=== PATIENT | female | born 1955 | race Two or more races ===

== ENCOUNTER → 2018-04-27 | Outpatient (CLI) | payer MEDICAID, OTHER | END | disposition home or self-care (01) | LOC: Rad HDHVI 14:15 | PROVIDERS: ATTEND Internal Medicine | DX: I10 Essential (primary) hypertension (principal); R00.2 Palpitations; R07.89 Other chest pain | CPT/HCPCS: 93306 ==

== ENCOUNTER → 2018-05-10 | Outpatient (CLI) | payer MEDICAID ==
[~2018-05-10] VITALS: Ht 160 cm; Wt 68.0 kg
== END | disposition home or self-care (01) ==
LOC: Rad HDHVI 14:43
PROVIDERS: ATTEND Internal Medicine
DX: I10 Essential (primary) hypertension (principal); E11.9 Type 2 diabetes mellitus without complications; E78.5 Hyperlipidemia, unspecified; R00.2 Palpitations
CPT/HCPCS: 78452; 93017; 96374; A9500

== ENCOUNTER 2019-11-15 22:57 | Emergency (ER) | payer MEDICAID ==
[~2019-11-15] VITALS: Ht 160 cm; Wt 72.6 kg
[2019-11-16 02:10] LABS: Basophils # (auto) 0 10 ^3/uL (0-0.2); Basophils % (auto) 0.5 % (0.0-2.0); Eosinophils # (auto) 0.1 10 ^3/uL (0-0.8); Eosinophils % (auto) 0.9 % (0.0-7.0); Hematocrit 45.3 % (36.0-46.0); Lymphocytes # (auto) 2.8 10 ^3/uL (0.4-5.4); Lymphocytes % (auto) 29.4 % (10.0-50.0); Mean Corpuscular Hemoglobin 29.3 pg (28.0-32.0); Mean Corpuscular Hgb Conc. 33.1 g/dL (32.0-36.0); Mean Corpuscular Volume 88.5 fL (80.0-100.0); Monocytes # (auto) 0.7 10 ^3/uL (0-1.3); Monocytes % (auto) 7.8 % (0.0-12.0); Neutrophils # (auto) 5.9 10 ^3/uL (1.6-8.6); Neutrophils % (auto) 61.4 % (37.0-80.0); Nucleated Red Blood Cells % 0.2 %; Platelet Count (auto) 189 10^3/uL (140-450); Red Blood Cells 5.12 10^6/uL (4.0-5.20); Red Cell Distribution Width 13.8 % (11.8-14.3); White Blood Cell 9.6 10^3/uL (4.4-10.8)
[2019-11-16 02:14] LABS: INR 1.02 (0.9-1.15); Partial Thromboplastin Time 27.3 sec (23.64-32.05)
[2019-11-16 02:24] LABS: Alanine Aminotransferase 22 U/L (13-56); Albumin 3.6 g/dL (3.4-5.0); Anion Gap 10 (5-15); Aspartate Aminotransferase 18 U/L (15-37); BUN/Creatinine Ratio 22.2; Blood Urea Nitrogen 20 mg/dL (7-18); Calcium 9.7 mg/dL (8.5-10.1); Carbon Dioxide 22 mmol/L (21-32); Chloride 106 mmol/L (98-107); GFR African American 81 mL/min; GFR Non-African American 67 mL/min; Glucose 133 mg/dL (74-106); Potassium 4.2 mmol/L (3.5-5.1); Sodium 138 mmol/L (136-145)
[2019-11-16 02:29] LABS: Alkaline Phosphatase 105 U/L (45-117); Bilirubin, Total 0.4 mg/dL (0.2-1.0); Total Protein 8.2 g/dL (6.4-8.2)
[2019-11-16 03:04] LABS: Urine Bacteria NONE SEEN /hpf (None Seen); Urine Blood Negative /uL (Negative); Urine WBC 2 /hpf (0 - 5)
[2019-11-16 04:00] VITALS: BP 129/54
== END 2019-11-16 04:17 | disposition home or self-care (01) ==
LOC: EDBD 22:57 → EDUNIT# 22:57 → ER 22:59
DX: I16.0 Hypertensive urgency (principal); E11.9 Type 2 diabetes mellitus without complications; I10 Essential (primary) hypertension
CPT/HCPCS: 36415; 70450; 71045; 80053; 81001; 83735; 83880; 84443; 84484; 85025; 85610; 85730; 93005

== ENCOUNTER 2022-06-16 17:26 | Emergency (ER) | payer MEDICAID ==
[~2022-06-16] VITALS: Ht 162.6 cm; Wt 75.0 kg
[2022-06-16] MEDS ORDERED: ONDANSETRON HCL 4 MG/2 ML VIAL IV ONE (19:30)
[2022-06-16] MEDS ORDERED: SODIUM CHLORIDE 0.9% 1,000 ML IV ONE (19:30)
[2022-06-16] MEDS ORDERED: KETOROLAC TROMETH 30 MG/ML 1ML VIAL IV ONE (19:30)
[2022-06-16 20:09] LABS: Albumin 4.3 g/dL (3.4-5.0); Calcium 9.3 mg/dL (8.5-10.1); Potassium 4.4 mmol/L (3.5-5.1)
[2022-06-16 20:12] LABS: BUN/Creatinine Ratio 18.1; Bilirubin, Total 0.7 mg/dL (0.2-1.0); Total Protein 7.9 g/dL (6.4-8.2)
[2022-06-16 20:16] LABS: Basophils # (auto) 0 10 ^3/uL (0-0.2); Basophils % (auto) 0.3 % (0.0-2.0); Eosinophils # (auto) 0 10 ^3/uL (0-0.8); Eosinophils % (auto) 0.3 % (0.0-7.0); Hematocrit 39.7 % (36.0-46.0); Hemoglobin 13.2 g/dL (12.2-16.2); Lymphocytes % (auto) 17.9 % (10.0-50.0); Mean Corpuscular Hemoglobin 29.6 pg (28.0-32.0); Mean Corpuscular Hgb Conc. 33.3 g/dL (32.0-36.0); Mean Corpuscular Volume 88.7 fL (80.0-100.0); Monocytes # (auto) 0.8 10 ^3/uL (0-1.3); Monocytes % (auto) 6.9 % (0.0-12.0); Neutrophils # (auto) 8.3 10 ^3/uL (1.6-8.6); Neutrophils % (auto) 74.6 % (37.0-80.0); Red Blood Cells 4.47 10^6/uL (4.0-5.20); Red Cell Distribution Width 14.6 % (11.8-14.3); White Blood Cell 11.2 10^3/uL (4.4-10.8)
[2022-06-16 21:34] LABS: Urine Bacteria FEW /hpf (None Seen); Urine Blood 1+ /uL (Negative); Urine Hyaline Cast FEW /lpf (0 - 2); Urine Mucus FEW (None Seen); Urine Specific Gravity 1.022 (1.001-1.035); Urine WBC 58 /hpf (0 - 5)
[2022-06-17] MEDS ORDERED: TAM04C PO (02:48)
[2022-06-17] MEDS ORDERED: PERCOT PO (02:48)
[2022-06-17] MEDS ORDERED: ONDA-144 PO (02:48)
[2022-06-17] MEDS ORDERED: CIPR-173 PO (02:48)
[2022-06-17 03:05] VITALS: BP 162/81
== END 2022-06-17 03:10 | disposition home or self-care (01) ==
LOC: ER 17:26
DX: N39.0 Urinary tract infection, site not specified (principal); R11.2 Nausea with vomiting, unspecified; I10 Essential (primary) hypertension; E11.9 Type 2 diabetes mellitus without complications; E78.5 Hyperlipidemia, unspecified
CPT/HCPCS: 36415; 74176; 80053; 81001; 85025; 93005; 96361; 96374; 96375; 99285; J1885; J2405; J7030

== ENCOUNTER 2024-12-10 09:10 | Inpatient (IN) | payer MEDICAID ==
[~2024-12-10] VITALS: Ht 170.2 cm; Wt 70.6 kg
[~2024-12-10 09:10] MED LIST: CIPR-173 PO; ONDA-144 PO; PERCOT PO; TAMS-35 PO
--- NOTE | 2024-12-10 09:23 | ED.PDOC ---
History of Present Illness HPI Comments 69 year old female presents to the ED via EMS with a chief complaint of generalized weakness onset today (12/10/24) around 07:00. Patient woke up around 07:00, began experiencing generalized weakness as well as nausea. Experienced similar symptoms in the past, blood pressure was high. Patient has a PMHx HTN, DM, HLD is not complaint with medication, has not taken medication for 2 years. Upon EMS arrival, BP was 200 systolic. Denies chest pain, palpitations, shortness of breath, dizziness, blurry vision, headache, vomiting, diarrhea, abdominal pain, fevers, chills, dysuria, hematuria. No other symptoms or modifying factors present at this time. Chief Complaint: General Weakness Time Seen by MD: 09:12 Primary Care Provider: GUNJAN Saenz Notes: Nurses Notes, Medications, Allergies Allergies: Coded Allergies: NO KNOWN ALLERGIES (Unverified , 11/15/19) Home Meds Active Scripts Tamsulosin Hcl (Flomax) 0.4 Mg Cap, 1 CAP PO DAILY for 14 Days, #14 CAP 0 Refills Prov:DIANA ADEN MD 06/17/22 Oxycodone W/ Acetaminophen (Percocet 5/325MG) 1 Tab Tb, 1 TAB PO BID for 7 Days, #14 TAB Prov:DIANA ADEN MD 06/17/22 Ondansetron (Zofran) 4 Mg Tab, 4 MG PO BID for 7 Days, #14 MG Prov:DIANA ADEN MD 06/17/22 Ciprofloxacin Hcl (Cipro) 500 Mg Tab, 500 MG PO BID for 7 Days, #14 CAP Prov:DIANA ADEN MD 06/17/22 Information Source: Patient, Emergency Med Personnel Mode of Arrival: EMS Severity: Moderate Timing: Hours Duration: Since onset Prehospital treatment: None Past Medical History PAST MEDICAL HISTORY: DM, High Lipids, HTN Surgical History: Denies all surgeries 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 Family History Family History: Reviewed,noncontributory to illness Social History Smoker: Non-Smoker Alcohol: Denies ETOH Use Drugs: Denies Drug Use Lives In: Home Constitutional: reports: weakness; denies: chills, diaphoresis, fatigue, fever, malaise, sweats, others EENTM: denies: blurred vision, double vision, ear bleeding, ear discharge, ear drainage, ear pain, ear ringing, eye pain, eye redness, hearing loss, mouth pain, mouth swelling, nasal discharge, nose bleeding, nose congestion, nose pain, photophobia, tearing, throat pain, throat swelling, voice changes, others Respiratory: denies: cough, hemoptysis, orthopnea, SOB at rest, shortness of breath, SOB with excertion, stridor, wheezing, others Cardiovascular: denies: chest pain, dizzy spells, diaphoresis, Dyspnea on exertion, edema, irregular heart beat, left arm pain, lightheadedness, palpitations, PND, syncope, others Gastrointestinal: reports: nausea; denies: abdomen distended, abdominal pain, blood streaked bowels, constipated, diarrhea, dysphagia, difficulty swallowing, hematemesis, melena, poor appetite, poor fluid intake, rectal bleeding, rectal pain, vomiting, others Genitourinary: denies: abnormal vagina bleeding, burning, dyspareunia, dysuria, flank pain, frequency, hematuria, incontinence, pain, , vagina d ischarge, urgency, others Neurological: reports: weakness; denies: dizziness, fainting, headache, left sided numbness, left sided weakness, numbness, paresthesia, pre-existing deficit, right sided numbness, right sided weakness, seizure, speech problems, tingling, tremors, others Musculoskeletal: denies: back pain, gout, joint pain, joint swelling, muscle pain, muscle stiffness, neck pain, others Integumetry: denies: bruises, change in color, change in hair/nails, dryness, laceration, lesions, lumps, rash, wounds, others Allergic/Immunocompromised: denies: Difficulty Healing, Frequent Infections, Hives, Itching, others Hematologic/Lymphatic: denies: anemia, blood clots, easy bleeding, easy bruising, swollen glands, others Endocrine: denies: excessive hunger, excessive sweating, excessive thirst, excessive urination, flushing, intolerance to cold, intolerance to heat, unexplained weight gain, unexplained weight loss, others Psychiatric: denies: anxiety, bipolar disorder, depression, hopeless, panic disorder, schizophrenia, sleepless, suicidal, others All Other Systems: Reviewed and Negative Physical Exam General Appearance: Moderate Distress HEENT: Pale Conjuntivae (L), Pale Conjuntivae (R), Pharynx Normal, TMs Normal Neck: Full Range of Motion, Non-Tender, Normal, Normal Inspection Respiratory: Chest Non-Tender, Lungs Clear, No Accessory Muscle Use, No Respiratory Distress, Normal Breath Sounds Cardiovascular: No Edema, No JVD, No Murmur, No Gallop, Normal Peripheral Pulses, Regular Rate/Rhythm Breast Exam: Deferred Gastrointestinal: No Organomegaly, Non Tender, No Pulsatile Mass, Normal Bowel Sounds, Soft Genitalia: Deferred Pelvic: Deferred Rectal: Deferred Extremities: No calf tenderness, Normal capillary refill, Normal inspection, Normal range of motion, Non-tender, No pedal edema Musculoskeletal : Apperance: Normal Neurologic: Alert, family assistant II-XII nml as Tested, Motor Weakness, Normal Affect, Normal Mood, No Sensory Deficits Cerebellar Function: Normal Reflexes: Normal Skin: Dry, Normal Color, Warm Lymphatic: No Adenopathy Was a procedure done? Was a procedure done?: No EKG EKG : Pulse Rate (adult): 78 Cardiac Rhythm: NSR Hypertrophy: LAE, RVH Differential Dx Considerations may include: Accelerated hypertension, generalized weakness, electrolyte imbalance, dehydration X-Ray, Labs, Meds, VS Vital Signs Date Time Temp Pulse Resp B/P (MAP) Pulse Ox O2 Delivery O2 Flow Rate FiO2 12/10/24 10:24 88 16 96 Room Air* 0 21 12/10/24 10:22 88 16 186/112 (136) 96 12/10/24 09:23 78 12/10/24 09:21 98.2 86 16 205/88 (127) 97 98.2 12/10/24 09:20 78 Lab Test 12/10/24 10:46 12/10/24 09:38 Range/Units Troponin I High Sensitivity 4 3 L </=34 ng/L White Blood Count 8.3 4.4-10.8 10^3/uL Red Blood Count 5.44 H 4.0-5.20 10^6/uL Hemoglobin 16.0 12.2-16.2 g/dL Hematocrit 47.3 H 36.0-46.0 % Mean Corpuscular Volume 87.0 80.0-100.0 fL Mean Corpuscular Hemoglobin 29.4 28.0-32.0 pg Mean Corpuscular Hemoglobin Concent 33.8 32.0-36.0 g/dL Red Cell Distribution Width 14.7 H 11.8-14.3 % Platelet Count 176 140-450 10^3/uL Mean Platelet Volume 9.8 6.9-10.8 fL Neutrophils (%) (Auto) 72.5 37.0-80.0 % Lymphocytes (%) (Auto) 20.9 10.0-50.0 % Monocytes (%) (Auto) 5.8 0.0-12.0 % Eosinophils (%) (Auto) 0.6 0.0-7.0 % Basophils (%) (Auto) 0.2 0.0-2.0 % Neutrophils # (Auto) 6.0 1.6-8.6 10 ^3/uL Lymphocytes # (Auto) 1.7 0.4-5.4 10 ^3/uL Monocytes # (Auto) 0.5 0-1.3 10 ^3/uL Eosinophils # (Auto) 0.1 0-0.8 10 ^3/uL Basophils # (Auto) 0 0-0.2 10 ^3/uL Nucleated Red Blood Cells 0.1 % Sodium Level 133 L 136-145 mmol/L Potassium Level 4.4 3.5-5.1 mmol/L Chloride Level 100 98-107 mmol/L Carbon Dioxide Level 22 20-31 mmol/L Anion Gap 11 5-15 Blood Urea Nitrogen 17 9-23 mg/dL Creatinine 1.20 H 0.550-1.02 mg/dL Glomerular Filtration Rate Calc 49 >90 mL/min BUN/Creatinine Ratio 14.2 10.0-20.0 Serum Glucose 294 H 74-106 mg/dL Calcium Level 10.3 8.7-10.4 mg/dL The patient's CBC is within normal limits The chemistry panel is within normal limits The troponin times shows no sign of any abnormalities The chest x-ray is negative We are going to admit the patient with a diagnosis of accelerated hypertension We will continue to manage the patient's blood pressure with clonidine and we did discuss the findings with the patient. The patient was admitted at this time Images Reviewed?: Images reviewed and evaluated by me Time of 1ST Reevaluation: 09:42 Reevaluation 1ST: Unchanged Patient Education/Counseling: Diagnosis, Treatment, Prognosis Family Education/Counseling: No Family Present Additional Information The following tests were ordered, and results were reviewed by me: TROP-x3, EKG -x3, CBC, XY CHEST, UA, BMP, Additional Information was gathered from interviewing the following independent historians: EMS I reviewed and agreed with the following test results read by other providers: XY CHEST I discussed treatment and results with medical personnel and: patient Comprehensive systems review obtained and negative except for what is stated in the HPI. Departure 1 Departure Time of Disposition: 11:25 Impression: Primary Impression: Accelerated hypertension Additional Impression: Generalized weakness Disposition: ADMITTED INPATIENT Admit to: Tele Condition: Fair Critical Care Note Critical Care Time?: Yes (45 min-critical care time only) Stability Stability form required: Yes Unstable for transfer: Telemetry monitoring (Telemetry monitoring required), ED Physician Assesment (Clinical assesment) Heart Score Heart Score: Heart Score Response (Comments) Value History Moderate Suspicious 1 EKG Normal 0 Age 45-64 1 Risk Factors 1 or 2 risk factors 1 Troponin Normal limit 0 Total 3 I personally scribed for AMAN LOPEZ MD ([email or web address]) on 12/10/24 at 09:23. Electronically submitted by Mary Jo Prado ([email or web address]). I personally scribed for AMAN LOPEZ MD ([email or web address]) on 12/10/24 at 09:23. Electronically submitted by Mary Jo Prado ([email or web address]). AMAN LOPEZ MD Dec 10, 2024 09:23
[2024-12-10 09:49] LABS: Basophils # (auto) 0 10 ^3/uL (0-0.2); Basophils % (auto) 0.2 % (0.0-2.0); Eosinophils # (auto) 0.1 10 ^3/uL (0-0.8); Eosinophils % (auto) 0.6 % (0.0-7.0); Hematocrit 47.3 % (36.0-46.0); Lymphocytes # (auto) 1.7 10 ^3/uL (0.4-5.4); Lymphocytes % (auto) 20.9 % (10.0-50.0); Mean Corpuscular Hemoglobin 29.4 pg (28.0-32.0); Mean Corpuscular Hgb Conc. 33.8 g/dL (32.0-36.0); Monocytes # (auto) 0.5 10 ^3/uL (0-1.3); Monocytes % (auto) 5.8 % (0.0-12.0); Neutrophils % (auto) 72.5 % (37.0-80.0); Nucleated Red Blood Cells % 0.1 %; Platelet Count (auto) 176 10^3/uL (140-450); Red Blood Cells 5.44 10^6/uL (4.0-5.20); Red Cell Distribution Width 14.7 % (11.8-14.3); White Blood Cell 8.3 10^3/uL (4.4-10.8)
--- NOTE | 2024-12-10 09:55 | DVH ---
CHEST RADIOGRAPH Indication: weakness Technique: Single frontal view of the chest was obtained Comparison: EKG on DOS: 06/16/22 FINDINGS: Lines and Tubes: None Lungs: No focal consolidation. Pleura: No effusion. No pneumothorax. Cardiomediastinal contours: Unremarkable Bones: No acute osseous abnormality. IMPRESSION: 1. No acute cardiopulmonary disease.
[2024-12-10 10:24] VITALS: PULSE 88; RESP 16; O2SAT 96
[2024-12-10 11:01] LABS: Chloride 100 mmol/L (98-107); Potassium 4.4 mmol/L (3.5-5.1)
[2024-12-10 11:02] LABS: Anion Gap 11 (5-15); Calcium 10.3 mg/dL (8.7-10.4); Carbon Dioxide 22 mmol/L (20-31)
[2024-12-10 11:03] LABS: Sodium 133 mmol/L (136-145)
[2024-12-10 11:07] LABS: BUN/Creatinine Ratio 14.2 (10.0-20.0); Blood Urea Nitrogen 17 mg/dL (9-23); Glucose 294 mg/dL (74-106)
[2024-12-10] MEDS ORDERED: NITROGLYCERIN 0.4 MG SL TAB SL PRN (18:45)
[2024-12-10] MEDS ORDERED: MORPHINE SULFATE INJ 2 MG/ml SYRG IV PRN (18:45)
[2024-12-10] MEDS ORDERED: ONDANSETRON HCL 4 MG/2 ML VIAL IV PRN (18:45)
[2024-12-10] MEDS ORDERED: DEXTROSE (50%) 50ML SYRG IV PRN (18:45)
[2024-12-10] MEDS: LISINOPRIL 5 MG TAB PO ONE (18:55)
[2024-12-10 19:20] LABS: HDL Cholesterol 48 mg/dL (40-59)
[2024-12-10 19:23] LABS: Cholesterol 316 mg/dL (< 200)
[2024-12-10 19:24] LABS: Triglycerides 441 mg/dL (< 150)
[2024-12-10 19:34] LABS: Chloride 104 mmol/L (98-107); Potassium 4.7 mmol/L (3.5-5.1); Sodium 137 mmol/L (136-145)
[2024-12-10 19:35] LABS: Anion Gap 14 (5-15)
[2024-12-10 19:41] LABS: Calcium 10.6 mg/dL (8.7-10.4); Carbon Dioxide 19 mmol/L (20-31); Glucose 210 mg/dL (74-106)
[2024-12-10 20:09] LABS: Blood Urea Nitrogen 20 mg/dL (9-23)
--- NOTE | 2024-12-10 22:14 | DVHHP2 ---
History of Present Illness Reason for Visit: Dizziness History of Present Illness 69-year-old female presents for evaluation of generalized weakness. The patient endorses a one day history of waking up feeling extremely dizzy. On arrival patient's blood pressure was systolic of 200s. Denies headache or blurred vision. No chest pain or palpitations. Patient reports not taking any medications for the past two years. No other acute complaints reported. Past Medical History Diabetes mellitus, dyslipidemia, hypertension Past Surgical History Denies Family History Noncontributory Smoke: No ALCOHOL: none Drugs: None Lives: with Family Review of Systems Review of Systems Review of systems are currently negative otherwise addressed in HPI. Allergies: Coded Allergies: NO KNOWN ALLERGIES (Unverified , 11/15/19) Medications Current Medications Medications Dose Ordered Sig/Cl Route Start Time Stop Time Status Last Admin Dose Admin Aspirin 81 mg DAILY PO 12/11/24 10:00 Lisinopril 10 mg DAILY PO 12/11/24 10:00 Diagnostic Test (Pha) 1 strip Q6HR 12/11/24 00:00 Insulin Human Regular Q6HR SC 12/11/24 00:00 Dextrose 50 ml UD PRN IV 12/10/24 18:45 Ondansetron HCl 4 mg Q4HP PRN IV 12/10/24 18:45 Enoxaparin Sodium 40 mg DAILY SC 12/11/24 10:00 Nitroglycerin 0.4 mg Q5MINP PRN SL 12/10/24 18:45 Morphine Sulfate 2 mg Q30M PRN IV 12/10/24 18:45 Exam Vital Signs Vital Signs Date Time Temp Pulse Resp B/P (MAP) Pulse Ox O2 Delivery O2 Flow Rate FiO2 12/10/24 22:06 96 16 161/86 (111) 97 12/10/24 10:24 Room Air* 0 21 12/10/24 09:21 98.2 98.2 Exam Gen: 69-year-old female in no apparent distress. Skin: Warm, dry, normal color and texture, no rash. HEENT: Normocephalic atraumatic, mucous membranes moist and pink. Neck: Cervical and supraclavicular nodes normal without enlargement, trachea is midline, thyroid gland is normal without masses. Pulmonary: Clear to auscultation and percussion bilaterally. Cardiac: Regular rate and rhythm. No murmur Abdomen: Soft, nontender, nondistended, bowel sounds present all 4 quadrants, no guarding, no rigidity, no organomegaly. Extremities: No cyanosis, clubbing, no edema Neuro: Cranial nerves II through XII grossly intact, normal affect and speech, no focal motor deficits. Labs/Xrays ORDERING PHYSICIAN: AMAN LOPEZ MD PROCEDURE(s): CXRP - CHEST PORTABLE REASON: weakness ORDER NUMBER(s): [id number], ACCESSION NUMBER(s): [id number] CHEST RADIOGRAPH Indication: weakness Technique: Single frontal view of the chest was obtained Comparison: EKG on DOS: 06/16/22 FINDINGS: Lines and Tubes: None Lungs: No focal consolidation. Pleura: No effusion. No pneumothorax. Cardiomediastinal contours: Unremarkable Bones: No acute osseous abnormality. IMPRESSION: 1. No acute cardiopulmonary disease. Labs Test 12/10/24 13:03 12/10/24 09:38 Range/Units Sodium Level 137 136-145 mmol/L Potassium Level 4.7 3.5-5.1 mmol/L Chloride Level 104 98-107 mmol/L Carbon Dioxide Level 19 L 20-31 mmol/L Anion Gap 14 5-15 Blood Urea Nitrogen 20 9-23 mg/dL Creatinine 1.11 H 0.550-1.02 mg/dL Glomerular Filtration Rate Calc 53 >90 mL/min BUN/Creatinine Ratio 18.0 10.0-20.0 Serum Glucose 210 H 74-106 mg/dL Calcium Level 10.6 H 8.7-10.4 mg/dL Troponin I High Sensitivity 6 </=34 ng/L White Blood Count 8.3 4.4-10.8 10^3/uL Red Blood Count 5.44 H 4.0-5.20 10^6/uL Hemoglobin 16.0 12.2-16.2 g/dL Hematocrit 47.3 H 36.0-46.0 % Mean Corpuscular Volume 87.0 80.0-100.0 fL Mean Corpuscular Hemoglobin 29.4 28.0-32.0 pg Mean Corpuscular Hemoglobin Concent 33.8 32.0-36.0 g/dL Red Cell Distribution Width 14.7 H 11.8-14.3 % Platelet Count 176 140-450 10^3/uL Mean Platelet Volume 9.8 6.9-10.8 fL Neutrophils (%) (Auto) 72.5 37.0-80.0 % Lymphocytes (%) (Auto) 20.9 10.0-50.0 % Monocytes (%) (Auto) 5.8 0.0-12.0 % Eosinophils (%) (Auto) 0.6 0.0-7.0 % Basophils (%) (Auto) 0.2 0.0-2.0 % Neutrophils # (Auto) 6.0 1.6-8.6 10 ^3/uL Lymphocytes # (Auto) 1.7 0.4-5.4 10 ^3/uL Monocytes # (Auto) 0.5 0-1.3 10 ^3/uL Eosinophils # (Auto) 0.1 0-0.8 10 ^3/uL Basophils # (Auto) 0 0-0.2 10 ^3/uL Nucleated Red Blood Cells 0.1 % Triglycerides Level 441 H < 150 mg/dL Cholesterol Level 316 H < 200 mg/dL LDL Cholesterol < 100 mg/dL HDL Cholesterol 48 40-59 mg/dL Thyroid Stimulating Hormone (TSH) 2.44 0.55-4.78 uIU/mL Assessment/Plan Assessment/Plan Assessment Hypertensive urgency Diabetes mellitus Acute kidney injury Noncompliant Plan Admit the patient to [facility] to the hospitalist Echocardiogram pending CT of the brain pending Resume home medications Continue treatment per orders. Plan discussed with: Patient My Orders Orders - DIANNE HOLCOMB AGACNP Procedure Category Date Status Time Aspirin Tablet PHA 12/11/24 In Process 10:00 Lisinopril Tablet PHA 12/11/24 In Process (Zestril Tablet) 10:00 Glucose Blood PHA 12/11/24 In Process (Accu-Chek Comfort 00:00 Insulin R (Human) PHA 12/11/24 In Process (Insulin R) 00:00 Dextrose 50% Syringe PHA 12/10/24 In Process 18:45 Admit ADMIT 12/10/24 Transmitted 18:43 Ondansetron Hcl PHA 12/10/24 In Process (Zofran) 18:45 Enoxaparin Sodium PHA 12/11/24 In Process (Lovenox) 10:00 Cardiac DIET 12/11/24 Transmitted Diet-2gna,Lofat,Lochol Breakfast Echo 2d Mode Cardiac US 12/10/24 Logged DOP 18:43 Condition: Stable [facility] 12/10/24 In Process 18:43 Bedrest With Bathroom [facility] 12/10/24 In Process Privileg 18:43 Nitroglycerin PHA 12/10/24 In Process Sublingual (Ntrostat 18:45 Morphine Sulfate PHA 12/10/24 In Process Injection 18:45 Stat Ekg For Chest [facility] 12/10/24 In Process Pain 18:43 Notify Md Of Changes [facility] 12/10/24 In Process From Base 18:43 Park Attendant For [facility] 12/10/24 In Process 24 Hours 18:43 Emergency Dysrhythmia [facility] 12/10/24 In Process Protocol 18:43 Rhythm Strips Once [facility] 12/10/24 In Process Every Shift 18:43 Oxygen By Nasal RT 12/10/24 Transmitted Cannula 18:43 Clonidine Hcl Tablet PHA 12/10/24 Verified (Catapres Tablet) 22:[address] 12/10/24 Verified 22:10 Date of Service: Dec 10, 2024 Billing Provider: DIANNE HOLCOMB Common Visit Codes: [id number] INP/OBS CARE (HIGH) DIANNE OHLCOMB Dec 10, 2024 22:14
--- NOTE | 2024-12-10 22:44 | DVH ---
EXAM: CT HEAD WITHOUT CONTRAST INDICATION: Dizziness TECHNIQUE: CT of the head without intravenous contrast. Radiation Dose Information: CT Dose: CTDI volume is 50.95 mGy. Dose-length product is 816.9 mGy*cm The dose indicators for CT are the volume Computed Tomography (CT) Dose Index (CTDIvol) and the Dose Length Product (DLP), and are measured in units of mGy and mGy-cm, respectively. These indicators are not patient dose, but values generated from the CT scanner acquisition factors. The report includes radiation exposure data for exposures received during this examination. COMPARISON: None FINDINGS: There is no evidence of acute intracranial hemorrhage, extra-axial collection, mass effect, midline s hift, herniation or hydrocephalus. The ventricles, sulci and cisterns are age appropriate. The sparks-white differentiation is intact. Patchy periventricular and subcortical white matter hypoattenuation is nonspecific but may be related to small vessel ischemic disease. The visualized paranasal sinuses and mastoid air cells are clear. The surrounding soft tissues and osseous structures are unremarkable. IMPRESSION: 1. No acute intracranial hemorrhage 2. No CT findings of territorial ischemia. 3. No paranasal sinus or mastoid disease
[2024-12-10 23:20] VITALS: BP_SYST 149; BP_SYST 161; BP_DIAS 74; BP_DIAS 76; PULSE 75; RESP 18; TEMP 97.5; O2SAT 95
[2024-12-10 23:29] VITALS: PULSE 75; RESP 18; O2SAT 95
[2024-12-11] MEDS: InsuLIN REG 1unit/0.01ml Soln (100units/ml) SC SCH (00:20)
[2024-12-11] MEDS: ACCU-CHEK COMFORT CURVE STRIP VI SCH (00:21)
[2024-12-11] MEDS: cloNIDine HCL 0.1 MG TAB PO PRN (00:35)
[2024-12-11 01:00] VITALS: BP 163/50; PULSE 73; RESP 18; O2SAT 96
[2024-12-11 05:00] VITALS: BP 98/59; PULSE 82; RESP 20; TEMP 97.9; O2SAT 96
--- NOTE | 2024-12-11 07:26 | ECG ---
[facility] Test Date: 2024-12-10 Test Time: 09:20:50 Pat Name: LIZBETH LLOYD Department: ED Room: 0251 A Gender: F Midlevel Provider: SEGUN : 1955 Requested By: AMAN LOPEZ Order Number: [id number] Reading MD: Garett Hou Measurements Intervals [place] Rate: 78 P: 65 DC: 157 QRS: 83 QRSD: 74 T: 54 QT: 357 QTc: 407 Interpretive Statements Sinus rhythm Probable left atrial enlargement Consider right ventricular hypertrophy Electronically Signed On 12-11-2024 17:09:37 PDT by Garett Hou Please click the below link to view image of tracing.
[2024-12-11 09:00] VITALS: BP 120/60; PULSE 70; RESP 18; TEMP 98.1; O2SAT 96
[2024-12-11] MEDS: LISINOPRIL 5 MG TAB PO SCH (10:00)
[2024-12-11] MEDS: ASPirin 81 mg TAB PO SCH (12:42)
[2024-12-11] MEDS: ENOXAPARIN SOD 40 MG/0.4 ML SYRINGE SC SCH (12:43)
[2024-12-11 13:00] VITALS: BP 130/58; PULSE 73; RESP 18; TEMP 97.9; O2SAT 93
--- NOTE | 2024-12-11 13:41 | DVHPN2 ---
Reviewed: Care Plan, H&P, Labs, Medications, Previous Orders, Radiology Changes from previous H/P or p: No Changes Objective Vitals Vital Signs Date Time Temp Pulse Resp B/P (MAP) Pulse Ox O2 Delivery O2 Flow Rate FiO2 12/11/24 13:00 97.9 73 18 130/58 (82) 93 97.9 12/10/24 23:29 Room Air* 0 21 Intake/Output Intake and Output 12/11/24 07:00 Intake Total 50 ml Balance 50 ml Intake Oral 50 ml Medications Current Medications Medications Dose Ordered Sig/Cl Route Start Time Stop Time Status Last Admin Dose Admin Aspirin 81 mg DAILY PO 12/11/24 10:00 12/11/24 12:42 81 MG Lisinopril 10 mg DAILY PO 12/11/24 10:00 12/11/24 10:00 10 MG Diagnostic Test (Pha) 1 strip Q6HR 12/11/24 00:00 12/11/24 12:00 1 STRIP Insulin Human Regular Q6HR SC 12/11/24 00:00 12/11/24 12:44 4 UNITS Dextrose 50 ml UD PRN IV 12/10/24 18:45 Ondansetron HCl 4 mg Q4HP PRN IV 12/10/24 18:45 Enoxaparin Sodium 40 mg DAILY SC 12/11/24 10:00 12/11/24 12:43 40 MG Nitroglycerin 0.4 mg Q5MINP PRN SL 12/10/24 18:45 Morphine Sulfate 2 mg Q30M PRN IV 12/10/24 18:45 Clonidine HCl 0.1 mg Q6HP PRN PO 12/10/24 22:15 12/11/24 00:35 0.1 MG Laboratory Results Laboratory Tests 12/10/24 09:38 12/10/24 13:03 Labs and/or images reviewed: Labs reviewed by me, Image(s) reviewed by me Assessment/Plan Assessment/Plan Acute hypertensive emergency with systolic of 200: Clonidine lisinopril metoprolol tartrate Acute hypertensive encephalopathy Uncontrolled diabetes glucose 238: Insulin sliding scale, we will check A1c Hypercholesterolemia: Lipitor Medication noncompliance BAYRON Acute dehydration Time Spent 50 minutes Plan discussed with: Patient My Orders Orders - KYRA HERNANDEZ MD Procedure Category Date Status Time Hemoglobin A1c LAB 12/11/24 Transmitted 13:38 Metoprolol Tartrate PHA 12/11/24 Transmitted Tablet (Lopressor Ta 22:00 Date of Service: Dec 11, 2024 Billing Provider: KYRA HERNANDEZ MD Common Visit Codes: [id number] INP/OBS CARE(HIGH) KYRA HERNANDEZ MD Dec 11, 2024 13:40
[2024-12-11 16:36] VITALS: BP 111/57; PULSE 68; RESP 18; TEMP 98.1; O2SAT 96
[2024-12-11 21:00] VITALS: BP 127/62; PULSE 78; RESP 19; TEMP 98.3; O2SAT 93
[2024-12-11] MEDS: METOPROLOL TARTRATE 50 MG TAB PO SCH (21:27)
[2024-12-12 00:54] VITALS: BP 101/55; PULSE 58; RESP 20; TEMP 97.6; O2SAT 96
[2024-12-12 05:00] VITALS: BP 120/64; PULSE 58; RESP 20; TEMP 98; O2SAT 97
[2024-12-12 08:00] VITALS: PULSE 76; RESP 94
[2024-12-12 08:08] VITALS: BP 153/82; PULSE 76; RESP 18; TEMP 97.5; O2SAT 94
[2024-12-12] MEDS ORDERED: METO-158 PO (09:17)
[2024-12-12] MEDS ORDERED: LISI20TA56 PO (09:17)
[2024-12-12] MEDS ORDERED: ATOR80TA PO (09:19)
--- NOTE | 2024-12-12 09:22 | DVHDS2 ---
Discharge Summary Date of Admission Dec 10, 2024 at 18:43 Date of Discharge: December 12, 2024 Admitting Diagnosis Generalized weakness Wounds: None Labs/Diagnostic Data: Laboratory Results Test 12/12/24 05:19 12/11/24 15:20 12/10/24 13:03 12/10/24 09:38 POC Glucose 158 mg/dl (70-106) Hemoglobin A1c 10.2 % A1C (<5.7) Sodium Level 137 mmol/L (136-145) Potassium Level 4.7 mmol/L (3.5-5.1) Chloride Level 104 mmol/L (98-107) Carbon Dioxide Level 19 mmol/L (20-31) Anion Gap 14 (5-15) Blood Urea Nitrogen 20 mg/dL (9-23) Creatinine 1.11 mg/dL (0.550-1.02) Glomerular Filtration Rate Calc 53 mL/min (>90) BUN/Creatinine Ratio 18.0 (10.0-20.0) Serum Glucose 210 mg/dL (74-106) Calcium Level 10.6 mg/dL (8.7-10.4) Troponin I High Sensitivity 6 ng/L (</=34) White Blood Count 8.3 10^3/uL (4.4-10.8) Red Blood Count 5.44 10^6/uL (4.0-5.20) Hemoglobin 16.0 g/dL (12.2-16.2) Hematocrit 47.3 % (36.0-46.0) Mean Corpuscular Volume 87.0 fL (80.0-100.0) Mean Corpuscular Hemoglobin 29.4 pg (28.0-32.0) Mean Corpuscular Hemoglobin Concent 33.8 g/dL (32.0-36.0) Red Cell Distribution Width 14.7 % (11.8-14.3) Platelet Count 176 10^3/uL (140-450) Mean Platelet Volume 9.8 fL (6.9-10.8) Neutrophils (%) (Auto) 72.5 % (37.0-80.0) Lymphocytes (%) (Auto) 20.9 % (10.0-50.0) Monocytes (%) (Auto) 5.8 % (0.0-12.0) Eosinophils (%) (Auto) 0.6 % (0.0-7.0) Basophils (%) (Auto) 0.2 % (0.0-2.0) Neutrophils # (Auto) 6.0 10 ^3/uL (1.6-8.6) Lymphocytes # (Auto) 1.7 10 ^3/uL (0.4-5.4) Monocytes # (Auto) 0.5 10 ^3/uL (0-1.3) Eosinophils # (Auto) 0.1 10 ^3/uL (0-0.8) Basophils # (Auto) 0 10 ^3/uL (0-0.2) Nucleated Red Blood Cells 0.1 % Triglycerides Level 441 mg/dL (< 150) Cholesterol Level 316 mg/dL (< 200) LDL Cholesterol mg/dL (< 100) HDL Cholesterol 48 mg/dL (40-59) Thyroid Stimulating Hormone (TSH) 2.44 uIU/mL (0.55-4.78) Other Laboratory Tests 12/10/24 13:03 12/10/24 09:38 Brief Hx & Hospital Course: 69-year-old female with a history of diabetes hypertension hypercholesterolemia noncompliant not taking medications came in complaining of generalized weakness systolic blood pressure was 200 treated with lisinopril metoprolol tartrate clonidine and blood pressure controlled glucose 238 placed on insulin sliding scale cholesterol very high total cholesterol 330 placed on Lipitor: Patient's blood pressure controlled and now asymptomatic with a stable vital signs being discharged home. Advised about compliance with the medications. Prescriptions transmitted to the pharmacy Consults/Reason for consult None Operations or Procedures CT head Condition at Discharge: Fair Final Diagnosis/Problems List Acute hypertensive emergency with systolic of 200: Clonidine lisinopril metoprolol tartrate Acute hypertensive encephalopathy Uncontrolled diabetes glucose 238: Insulin sliding scale, we will check A1c Hypercholesterolemia: Lipitor Medication noncompliance BAYRON Acute dehydration Discharge Disposition: Home Discharge Instruct/Medications Diet: Cardiac 2g Na,low cholest Activity: Light activity Follow Up/Referral: Use medications as prescribed Follow up with the primary Dr Medications: Metoprolol tartrate Lisinopril Transmitted to pharmacy 39 (Time Taken for discharge summary 39 minutes) Discharge Statement: "Patient was advised to return to the ER or call 911 if any headaches, dizziness, shortness of breath, chest pain, abdominal pain, bleeding, fevers, or worsening of medical condition. Patient was counseled about treatment plan, medications, possible side effects, patientverbalized understanding. All questions were answered to the best of my ability. This discharge took greater then 30 minutes in planning, reviewing documentation, counseling the patient, and discussing with other team members." ASSESSMENT ASSESSMENT Hospital Course Improved Assessment Acute hypertensive emergency with systolic of 200: Clonidine lisinopril metoprolol tartrate Acute hypertensive encephalopathy Uncontrolled diabetes glucose 238: Insulin sliding scale, we will check A1c Hypercholesterolemia: Lipitor Medication noncompliance BAYRON Acute dehydration Date of Service: December 12, 2024 Billing Provider: KYRA HERNANDEZ MD Common Visit Codes: [id number] DISCH DAY >30min KYRA HERNANDEZ MD December 12, 2024 09:22
[2024-12-12] MEDS ORDERED: METF-372 PO (09:30)
[2024-12-12 11:38] VITALS: BP 120/29; PULSE 60; RESP 20; TEMP 98.7; O2SAT 96
[2024-12-12] MEDS: ATORVASTATIN 20 MG TAB PO ONE (11:45)
--- NOTE | 2024-12-12 14:32 | DVHSR ---
APPROVED REPORT EXAM: Two-dimensional and M-mode echocardiogram with Doppler and color Doppler. Blood Pressure: 98/59 mmHg INDICATION EF RISK FACTORS Height: 5'7", Weight: 155 DIMENSIONS LVDd4.4 (3.8-5.7cm)LA (2D)3.5 (1.9-4.0cm)Aortic Root2.8 (2.0-3.7cm) LVDs2.6 (2.5-4.0cm)LA (MM) (1.9-4.0cm)Aortic Cusp Exc1.3 (1.5-2.0cm) EF (%) 73.0 (55-70%)Rt. Atrium3.0 (1.9-4.0cm)Asc. Aorta2.7 cm IVSd1.1 (0.7-1.1cm)RV (D)2.8 (1.8-2.4cm) PWd0.6 (0.7-1.1cm) Mitral Valve MitralMitral Stenosis E wave0.49m/sMV Mean GR.mmHg A wave0.84m/sMV Peak GR.mmHg E/A ratio0.62D MVAcm2 DECEL [id number] 1/2 Timems Aortic Valve Aortic ValveAortic Stenosis V11.19m/Marcia Mean GR.4mmHg V21.21m/Marcia Peak GR.5mmHg LVOT Diameter1.6 (1.8-2.4cm)Doppler AVA1.98cm2 Pulmonic Valve V21.16m/s Tricuspid Valve TR Velocity2.44m/s [id number] Conclusion Technically good study. Sinus rhythm. Mild concentric LVH with left atrial enlargement of mild degree. Mild dilation of the sinuses of Shelley leon. Valves appear to be structurally normal. EF of 60% with normal RV function. Doppler reveals mild TR. No pericardial effusion masses or vegetations.
[2024-12-12 16:04] VITALS: BP 111/52; PULSE 67; RESP 18; TEMP 98.3; O2SAT 98
== END 2024-12-12 17:05 | disposition home or self-care (01) | DRG 199 ==
LOC: EDBD 09:10 → ER 09:10 → OVERFLOW 18:43 → EAST 23:18
PROVIDERS: ADMIT Family Medicine; ATTEND Family Medicine
DX: I16.1 Hypertensive emergency (principal); I67.4 Hypertensive encephalopathy; N17.9 Acute kidney failure, unspecified; E11.9 Type 2 diabetes mellitus without complications; E86.0 Dehydration; E78.00 Pure hypercholesterolemia, unspecified; Z91.148 Patient's other noncompliance with medication regimen for other reason; Z79.899 Other long term (current) drug therapy
CPT/HCPCS: 36415; 70450; 71045; 80048; 80061; 82962; 83036; 84443; 84484; 85025; 93005; 93306; 99291; G0378; J1815

== ENCOUNTER 2025-06-13 22:26 | Inpatient (IN) | payer MEDICAID ==
[~2025-06-13] VITALS: Ht 154.9 cm; Wt 66.5 kg
[~2025-06-13 22:26] MED LIST changes: +ATOR80TA PO; +LISI20TA56 PO; +METF-372 PO; +METO-158 PO
[2025-06-13] MEDS: NITROGLYCERIN 0.4 MG SL TAB SL ONE (22:52)
[2025-06-13 23:43] LABS: Hematocrit 41.9 % (36.0-46.0); Hemoglobin 14.1 g/dL (12.2-16.2); Mean Corpuscular Hemoglobin 30.0 pg (28.0-32.0); Mean Corpuscular Volume 89.4 fL (80.0-100.0); Nucleated Red Blood Cells % 0.1 %
[2025-06-13 23:59] LABS: Alanine Aminotransferase 20 U/L (7-40); Albumin 4.6 g/dL (3.2-4.8); Alkaline Phosphatase 103 U/L (46-116); Anion Gap 11 (5-15); BUN/Creatinine Ratio 17.3 (10.0-20.0); Bilirubin, Total 0.8 mg/dL (0.2-1.0); Blood Urea Nitrogen 19 mg/dL (9-23); Calcium 10.1 mg/dL (8.7-10.4); Carbon Dioxide 23 mmol/L (20-31); Chloride 105 mmol/L (98-107); Magnesium 1.9 mg/dL (1.6-2.6); Potassium 4.3 mmol/L (3.5-5.1); Sodium 139 mmol/L (136-145); Total Protein 7.8 g/dL (5.7-8.2)
[2025-06-14] VITALS (9 sets, daily range): BP systolic 127–196; BP diastolic 71–100; PULSE 67–91; RESP 16–17; TEMP 97.3–98.1; O2SAT 96–100
[2025-06-14 00:01] LABS: Lactic Acid w/Reflex 2.2 mmol/L (0.4-2.0)
[2025-06-14 00:02] LABS: Glucose 129 mg/dL (74-106); Lipase 56 U/L (12-53)
[2025-06-14] MEDS: LIDOCAINE VISCOUS 2% 15ML UD PO ONE (00:15)
--- NOTE | 2025-06-14 00:15 | ED.PDOC ---
HPI Comments HPI: Poor Historian. 69-year-old female brought in by her daughter for evaluation of one day history of midsternal chest burning sensation with the associated nausea. No abdominal pain. Patient was found to be hypertensive in the 200s systolically. She is compliant with the medications. Denies any other active symptoms. Past Medical History: Hypertension, hyperlipidemia, diabetes Past Surgical History: Some type of neck surgery she is not sure of REVIEW OF SYSTEMS: CONSTITUTIONAL: Denies acute: fever, diaphoresis, chills, generalized weakness. HEAD: Denies acute: headache, photophobia Eyes: Denies acute: Double vision, vision loss, eye pain, eye discharge. EARS: Denies acute: tinnitus, hearing loss, ear discharge, ear pain, THROAT: Denies acute: sore throat, swelling, difficulty swallowing , pain with swallowing, change in voice. NECK: Denies acute: neck pain, neck swelling, stiff neck. HEART: Denies acute : palpitations, LUNGS: Denies acute: SOB, wheezing, cough, hemoptysis ABDOMEN: Denies acute: abdominal pain, Vomiting, diarrhea, melena , hematemesis, hematochezia SKIN: Denies acute: rash, redness, lesions, itchiness. EXTREMITIES: Denies acute: calf pain, numbness, tingling, weakness, denies pain in extremity. Denies acute: Low back pain. Neuro: Denies acute: focal neurological deficit, motor or sensory focal neurological deficit, tremors, seizure like activity, confusion, dizziness, change in mental status, loss of bowel or bladder function, cauda equina like symptoms. : Denies acute: dysuria, hematuria, flank pain, increase in urinary frequency. PSYCH: Denies acute: hallucination, suicidal ideation, homicidal ideation. FEMALE: Denies acute: abnormal vaginal bleeding, foul odor, unusual discharge. PHYSICAL EXAM: General: ----mild----acute distress, awake and alert. Head: normocephalic, atraumatic. No raccoon's eyes, no so sign. Neck: supple, trachea is midline, no swelling. Throat: Normal phonation. Eyes:, no erythema, no purulent discharge, no proptosis, no icterus. Heart: regular rate, regular rhythm, no significant murmur appreciated. Lungs: no apparent respiratory distress, Able to speak in full sentences. No wheezing, no rhonchi, no crackles. No stridors Clear to auscultation bilaterally. Abdomen: non tender to palpation, non distended, soft, no guarding, no rebound, + bowel sounds. Neuro: Awake, Alert, oriented to name, self, situation, follows commands GCS=15. Speech is normal. Skin: no petechia, no purpura, no cyanosis, non-pale, not jaundice. Lower extremities: --no - Pitting edema no deformity, no focal swelling, no calf TTP. Makes eye contact. moves all four extremities. Face: no apparent facial droop. ED COURSE: DISCLAIMER: This medical document was created using an electronic medical record system with voice recognition software and computerized dictation system. Although this document has been carefully reviewed, there might still be some phonetic and typographical errors. Occasional wrong-word or "sound-alike" substitutions may have occurred due to the inherent limitations of voice recognition software. These areas are purely typographical due to imperfections of the software programs and do not reflect any compromise in the patient's medical care. Please read the chart carefully and recognize, using context, where these substitutions have occurred. Chief Complaint: High Blood Pressure Time Seen by MD: 23:20 Primary Care Provider: GUNJAN Reviewed Notes: Nurses Notes, Medications, Allergies Allergies: Coded Allergies: NO KNOWN ALLERGIES (Unverified , 11/15/19) Home Meds Active Scripts Metformin Hydrochloride (Metformin Hcl) 1,000 Mg Tab, 1 TAB PO BID, #60 TAB 5 Refills Prov:KYRA HERNANDEZ MD 12/12/24 Atorvastatin Calcium (Lipitor) 80 Mg Tab, 1 TAB PO DAILY, #30 TAB 5 Refills Prov:KYRA HERNANDEZ MD 12/12/24 Lisinopril (Lisinopril) 20 Mg Tab, 1 TAB PO DAILY, #30 TAB 5 Refills Prov:KYRA HERNANDEZ MD 12/12/24 Metoprolol Tartrate (Metoprolol Tartrate) 50 Mg Tab, 50 MG PO BID, #60 TAB Prov:KYRA HERNANDEZ MD 12/12/24 Tamsulosin Hcl (Flomax) 0.4 Mg Cap, 1 CAP PO DAILY for 14 Days, #14 CAP 0 Refills Prov:DIANA ADEN MD 06/17/22 Oxycodone W/ Acetaminophen (Percocet 5/325MG) 1 Tab Tb, 1 TAB PO BID for 7 Days, #14 TAB Prov:DIANA ADEN MD 06/17/22 Ondansetron (Zofran) 4 Mg Tab, 4 MG PO BID for 7 Days, #14 MG Prov:DIANA ADEN MD 06/17/22 Ciprofloxacin Hcl (Cipro) 500 Mg Tab, 500 MG PO BID for 7 Days, #14 CAP Prov:DIANA ADEN MD 06/17/22 Information Source: Patient Mode of Arrival: Ambulatory Past Medical History PAST MEDICAL HISTORY: DM, High Lipids, HTN Surgical History: Denies all surgeries INFO ANALYST History: No Pertinent INFO ANALYST History Family History Family History: Reviewed,noncontributory to illness Social History Smoker: Non-Smoker Alcohol: Denies ETOH Use Drugs: Denies Drug Use Lives In: Home Was a procedure done? Was a procedure done?: No CP Differential Dx Differential Diagnosis: N/A Differential Diagnosis: Other (DDX include renal disease, thyroid disease, electrolyte abnormality, increased salt intake, medications non-compliance, undiagnosed HTN, Hypertensive crisis, hypertensive urgency., drug toxicity.) Differential Diagnosis: Other (Ddx include but not limitied to gastritis, musculoskeletal pain, radiculopathy, atypical chest pain, dissection, aneurysm, ACS, unstable angina, hiatal hernia, GERD, anxiety, costochondritis, PE, pneumothroax, neoplasm, cardiac ischemia, drug abuse, anemia.) X-Ray, Labs, Meds, VS Vital Signs Date Time Temp Pulse Resp B/P (MAP) Pulse Ox O2 Delivery O2 Flow Rate FiO2 06/13/25 22:52 212/102 06/13/25 22:42 77 06/13/25 22:33 97.1 90 20 202/107 98 97.1 Lab Test 06/14/25 00:32 06/13/25 23:59 06/13/25 23:32 Range/Units Troponin I High Sensitivity < 3 L < 3 L </=34 ng/L Urine Color Colorless Yellow Urine Clarity Clear Clear Urine pH 6.0 5.0-9.0 Urine Specific [place] 1.010 1.001-1.035 Urine Protein 1+ H Negative Urine Ketones Negative Negative Urine Blood Negative Negative /uL Urine Nitrite Negative Negative Urine Bilirubin Negative Negative Urine Urobilinogen Normal Negative mg/dL Urine Leukocyte Esterase 1+ Negative /uL Urine RBC 1 0 - 4 /hpf Urine Microscopic WBC 4 0-5 /HPF Urine Squamous Epithelial Cells Few <5 /hpf Urine Bacteria None seen None Seen /hpf Urine Glucose Normal Normal mg/dL White Blood Count 9.3 4.4-10.8 10^3/uL Red Blood Count 4.69 4.0-5.20 10^6/uL Hemoglobin 14.1 12.2-16.2 g/dL Hematocrit 41.9 36.0-46.0 % Mean Corpuscular Volume 89.4 80.0-100.0 fL Mean Corpuscular Hemoglobin 30.0 28.0-32.0 pg Mean Corpuscular Hemoglobin Concent 33.6 32.0-36.0 g/dL Red Cell Distribution Width 13.8 11.8-14.3 % Platelet Count 179 140-450 10^3/uL Mean Platelet Volume 10.0 6.9-10.8 fL Neutrophils (%) (Auto) 58.4 37.0-80.0 % Lymphocytes (%) (Auto) 33.2 10.0-50.0 % Monocytes (%) (Auto) 7.6 0.0-12.0 % Eosinophils (%) (Auto) 0.5 0.0-7.0 % Basophils (%) (Auto) 0.3 0.0-2.0 % Neutrophils # (Auto) 5.4 1.6-8.6 10 ^3/uL Lymphocytes # (Auto) 3.1 0.4-5.4 10 ^3/uL Monocytes # (Auto) 0.7 0-1.3 10 ^3/uL Eosinophils # (Auto) 0 0-0.8 10 ^3/uL Basophils # (Auto) 0 0-0.2 10 ^3/uL Nucleated Red Blood Cells 0.1 % Sodium Level 139 136-145 mmol/L Potassium Level 4.3 3.5-5.1 mmol/L Chloride Level 105 98-107 mmol/L Carbon Dioxide Level 23 20-31 mmol/L Anion Gap 11 5-15 Blood Urea Nitrogen 19 9-23 mg/dL Creatinine 1.10 H 0.550-1.02 mg/dL Glomerular Filtration Rate Calc 54 >90 mL/min BUN/Creatinine Ratio 17.3 10.0-20.0 Serum Glucose 129 H 74-106 mg/dL Lactic Acid Level 2.2 *H 0.4-2.0 mmol/L Calcium Level 10.1 8.7-10.4 mg/dL Magnesium Level 1.9 1.6-2.6 mg/dL Total Bilirubin 0.8 0.2-1.0 mg/dL Aspartate Amino Transferase (AST) 21 13-40 U/L Alanine Aminotransferase (ALT) 20 7-40 U/L Alkaline Phosphatase 103 46-116 U/L Total Protein 7.8 5.7-8.2 g/dL Albumin 4.6 3.2-4.8 g/dL Lipase 56 H 12-53 U/L Current Medications Medications (Trade) Dose Ordered Sig/Cl Route Start Time Stop Time Status Last Admin Nitroglycerin (Ntrostat Sublingual) 0.4 mg ONCE ONCE SL 06/13/25 22:45 06/13/25 22:46 DC 06/13/25 22:52 Labetalol HCl (Labetalol HCl) 5 mg ONCE ONCE IV 06/13/25 23:30 06/13/25 23:31 DC 06/14/25 04:53 Sucralfate (Carafate Tab) 1 gm ONCE ONCE PO 06/14/25 00:15 06/14/25 00:24 DC 06/14/25 04:53 Pantoprazole Sodium (Protonix Tablet) 40 mg ONCE ONCE PO 06/14/25 00:15 06/14/25 00:24 DC 06/14/25 04:00 Lidocaine HCl (Xylocaine 2% Viscous) 10 ml ONCE ONCE PO 06/14/25 00:15 06/14/25 00:24 DC 06/14/25 00:[address] [address] Ph: [phone] DIAGNOSTIC IMAGING Diagnostic Imaging Report : [id number] Signed PATIENT: LIZBETH MOOREACCT: [id number] UNIT: [id number] : 1955 LOC: ER ROOM / BED: / AGE / SEX: 69 / F ADM STATUS: REG ER SERVICE 2100 ORDERING PHYSICIAN: CHET MONTOYA DO PROCEDURE(s): CXRP - CHEST PORTABLE REASON: nausea, HTN ORDER NUMBER(s): [id number], ACCESSION NUMBER(s): [id number] CHEST RADIOGRAPH Indication: nausea, HTN Technique: Single frontal view of the chest was obtained COMPARISON: XY CHEST PORTABLE on DOS: 12/10/24, EKG on DOS: 06/16/22 FINDINGS: Lines and Tubes: None Lungs: Clear Pleura: No effusion. No pneumothorax. Cardiomediastinal contours: Unremarkable Bones: Unremarkable IMPRESSION: 1. No acute disease. ATED BY: ZANE MEDRANO MD DICTATED DATE/TIME: 06/14/25106 SIGNED BY: ZANE MEDRANO MD SIGNED DATE/TIME: 06/14/25106 CC: Time of 1ST Reevaluation: 00:00 Reevaluation 1ST: Unchanged Patient Education/Counseling: Diagnosis, Treatment Family Education/Counseling: Diagnosis, Treatment Comments MDM: patient presented with the above HPI.---chest pain/hypertension---workup was initiated. patient was found with the above mentioned diagnosis. the following medications were ordered: please refer to order lists of meds and tests obtained by myself Dr. Montoya. Patient ED course and VS have been stabilized. Patient has been reassessed in the ED and remained in a stable condition. Pertinent incidental findings were discussed with the patient and/or family. Patient/family voices understanding and is agreeable with plan. Patient has been observed in the ED adequate length of time to insure im provement/stability. Escalation of care considered: Consideration of escalation to observation or admission Patient was ADMITTED to the medicine team for further evaluation and treatment of their presentation. All the reports of any imaging studies that were ordered by myself were reviewed by myself. Departure 1 Departure Time of Disposition: 00:14 Impression: Primary Impression: Chest pain Additional Impression: Hypertensive crisis Disposition: ADMITTED INPATIENT Admit to: Tele Condition: Guarded Discharged With: Self Critical Care Note Critical Care Time?: Yes (45 min-critical care time only) Heart Score Heart Score: Heart Score Response (Comments) Value History Slightly Suspicious 0 EKG Normal 0 Age >65 2 Risk Factors >3 or Hx ASHD 2 Troponin Normal limit 0 Total 4 CHET MONTOYA DO Jun 14, 2025 00:15
[2025-06-14 00:56] LABS: Urine Protein, UAD 1+ (Negative)
--- NOTE | 2025-06-14 01:09 | DVH ---
CHEST RADIOGRAPH Indication: nausea, HTN Technique: Single frontal view of the chest was obtained COMPARISON: XY CHEST PORTABLE on DOS: 12/10/24, EKG on DOS: 06/16/22 FINDINGS: Lines and Tubes: None Lungs: Clear Pleura: No effusion. No pneumothorax. Cardiomediastinal contours: Unremarkable Bones: Unremarkable IMPRESSION: 1. No acute disease.
[2025-06-14] MEDS ORDERED: ONDANSETRON HCL 4 MG/2 ML VIAL IV PRN (01:15)
[2025-06-14] MEDS: LISINOPRIL 20 MG TAB PO ONE (01:15)
[2025-06-14] MEDS ORDERED: ACETAMINOPHEN 325 MG TAB PO PRN (01:15)
[2025-06-14] MEDS ORDERED: DEXTROSE (50%) 50ML SYRG IV PRN (01:15)
--- NOTE | 2025-06-14 02:54 | DVHHPRES ---
History of Present Illness Resident Creating Document: GERALD NANCE RESIDENT History of Present Illness 69-year-old female with a past medical history of hypertension, hyperlipidemia, type 2 diabetes mellitus, CKD, medical noncompliance came to the emergency department with complaints of chest pain. She describes the pain as burning type, starting in the upper chest that radiates to her neck, 10/10 intensity and causes her to be nauseous, with no aggravating or relieving factors. Patient reports that every time her blood pressure increases, she feels the same sensation which is what prompted her to visit the hospital. On inquiry, patient states she has been not compliant with her medications as regularly. BP on admission was 202/107 mmHg. She denies any substernal chest pain, GERD symptoms, visual changes, palpitations, ringing of the ears, ED, vomiting, fever, chills, headache, urinary symptoms, shortness of breath. rest of the vitals were normal temp 97.1, pulse 77, RR 20, SpO2 98% in RA. We are admitting the patient for hypertensive urgency further workup and management. Past medical history: As stated above Past surgical history: Denies any Social history: Patient denies smoking, alcohol, we will see drug abuse Family history: All siblings are hypertensive Allergies: None PCP: [place] remember the name, is in [facility] code status: Full code Review of Systems Constitutional: Yes: Other (Nausea); No: Fever, Chills, Sweats, Weakness, Malaise Eyes: No: Pain, Vision change, Conjunctivae inflammation, Eyelid inflammation, Other, Redness ENT: No: Ear pain, Ear discharge, Nose pain, Nose discharge, Nose congestion, Mouth pain, Mouth swelling, Throat pain, Throat swelling, Other Respiratory: No: Cough, Dry, Shortness of breath, SOB with excertion, Wheezing, Hemoptysis, Pleuritic Pain, Sputum, Wheezing, Other Cardiovascular: Chest Pain; No: Palpitations, Orthopnea, Paroxysmal Noc. Dyspnea, Edema, Lt Headedness, Other Gastrointestinal: No: Nausea, Vomiting, Abdominal Pain, Diarrhea, Constipation, Melena, Hematochezia, Other Genitourinary: No Dysuria, No Frequency, No Incontinence, No Hematuria, No Retention, No Other Musculoskeletal: No: other, neck pain, shoulder pain, arm pain, back pain, hand pain, leg pain, foot pain Skin: No: Rash, Lesions, Jaundice, Bruising, Other Neurological: No: Weakness, Numbness, Incoordination, Change in speech, Confusion, Seizures, Other Allergies: Coded Allergies: NO KNOWN ALLERGIES (Unverified , 11/15/19) Medications Current Medications Medications Dose Ordered Sig/Cl Route Start Time Stop Time Status Last Admin Dose Admin Ondansetron HCl 4 mg Q4HP PRN IV 06/14/25 01:15 Acetaminophen 650 mg Q6HP PRN PO 06/14/25 01:15 Enoxaparin Sodium 40 mg DAILY SC 06/14/25 01:15 Pantoprazole Sodium 40 mg DAILY IV 06/14/25 10:00 Lisinopril 20 mg DAILY PO 06/14/25 10:00 Metoprolol Tartrate 50 mg BID PO 06/14/25 10:00 Aspirin 81 mg DAILY PO 06/14/25 10:00 Atorvastatin Calcium 80 mg HS PO 06/14/25 22:00 Hydralazine HCl 10 mg Q6HP PRN IV 06/14/25 01:15 Diagnostic Test (Pha) 1 strip ACHS 06/14/25 07:00 Insulin Human Regular ACHS SC 06/14/25 07:00 Dextrose 50 ml UD PRN IV 06/14/25 01:15 Exam Vital Signs Vital Signs Date Time Temp Pulse Resp B/P (MAP) Pulse Ox O2 Delivery O2 Flow Rate FiO2 06/14/25 01:49 97.5 74 16 155/78 (103) 97 97.5 Exam General Appearance: Alert, Oriented X3, Cooperative, Not in acute distress HEENT: Atraumatic, Mucous membranes moist/pink Respiratory: Clear to auscultation, Normal air movement, No added sounds Cardiovascular: Regular rate, Normal S1, Normal S2, No murmurs Abdominal: Active bowel sounds, Soft, no distention, no tenderness Extremities: No edema, Normal pulses, No tenderness/swelling Skin: No Significant rash, except past surgical scars Neuro: Normal speech, sensorimotor deficits none Psych/Mental Status: Mental status NL, Mood NL Labs/Xrays Labs Test 06/14/25 02:25 06/13/25 23:59 06/13/25 23:32 Range/Units Urine Color Colorless Yellow Urine Clarity Clear Clear Urine pH 6.0 5.0-9.0 Urine Specific [place] 1.010 1.001-1.035 Urine Protein 1+ H Negative Urine Ketones Negative Negative Urine Blood Negative Negative /uL Urine Nitrite Negative Negative Urine Bilirubin Negative Negative Urine Urobilinogen Normal Negative mg/dL Urine Leukocyte Esterase 1+ Negative /uL Urine RBC 1 0 - 4 /hpf Urine Microscopic WBC 4 0-5 /HPF Urine Squamous Epithelial Cells Few <5 /hpf Urine Bacteria None seen None Seen /hpf Urine Glucose Normal Normal mg/dL White Blood Count 9.3 4.4-10.8 10^3/uL Red Blood Count 4.69 4.0-5.20 10^6/uL Hemoglobin 14.1 12.2-16.2 g/dL Hematocrit 41.9 36.0-46.0 % Mean Corpuscular Volume 89.4 80.0-100.0 fL Mean Corpuscular Hemoglobin 30.0 28.0-32.0 pg Mean Corpuscular Hemoglobin Concent 33.6 32.0-36.0 g/dL Red Cell Distribution Width 13.8 11.8-14.3 % Platelet Count 179 140-450 10^3/uL Mean Platelet Volume 10.0 6.9-10.8 fL Neutrophils (%) (Auto) 58.4 37.0-80.0 % Lymphocytes (%) (Auto) 33.2 10.0-50.0 % Monocytes (%) (Auto) 7.6 0.0-12.0 % Eosinophils (%) (Auto) 0.5 0.0-7.0 % Basophils (%) (Auto) 0.3 0.0-2.0 % Neutrophils # (Auto) 5.4 1.6-8.6 10 ^3/uL Lymphocytes # (Auto) 3.1 0.4-5.4 10 ^3/uL Monocytes # (Auto) 0.7 0-1.3 10 ^3/uL Eosinophils # (Auto) 0 0-0.8 10 ^3/uL Basophils # (Auto) 0 0-0.2 10 ^3/uL Nucleated Red Blood Cells 0.1 % Sodium Level 139 136-145 mmol/L Potassium Level 4.3 3.5-5.1 mmol/L Chloride Level 105 98-107 mmol/L Carbon Dioxide Level 23 20-31 mmol/L Anion Gap 11 5-15 Blood Urea Nitrogen 19 9-23 mg/dL Creatinine 1.10 H 0.550-1.02 mg/dL Glomerular Filtration Rate Calc 54 >90 mL/min BUN/Creatinine Ratio 17.3 10.0-20.0 Serum Glucose 129 H 74-106 mg/dL Calcium Level 10.1 8.7-10.4 mg/dL Magnesium Level 1.9 1.6-2.6 mg/dL Total Bilirubin 0.8 0.2-1.0 mg/dL Aspartate Amino Transferase (AST) 21 13-40 U/L Alanine Aminotransferase (ALT) 20 7-40 U/L Alkaline Phosphatase 103 46-116 U/L Total Protein 7.8 5.7-8.2 g/dL Albumin 4.6 3.2-4.8 g/dL Lipase 56 H 12-53 U/L SEPSIS Sepsis Screen Date sepsis recognized/suspect: Jun 13, 2025 Time Sepsis recognized/suspect: 2236 Recent Procedure: No On Antibiotic Therapy: No Respiratory Rate >20: No Heart Rate >90: No Temp<36 C (96.8 F) or >38.3 C: No SBP <90 or MAP <65 mmHG: No New Acute Mental Status Change: No Is the patient on CPAP, BIPAP,: No Physician Orders Electrocardigram (06/13/25 22:49) Pneumatic Tester (06/13/25 ) Chest Portable (06/13/25 23:20) Troponin-I Hs (06/14/25 02:20) Admit (06/14/25 01:11) Code Status (06/14/25 01:11) Ondansetron Hcl (Zofran) (06/14/25 01:15) Complete Blood Count (06/14/25 04:00) Comprehensive Metabolic Panel (06/14/25 04:00) Cardiac Diet-2gna,Lofat,Lochol (06/14/25 Breakfast) Condition: Unstable (06/14/25 01:11) Acetaminophen Tablet (Tylenol Tablet) (06/14/25 01:15) Enoxaparin Sodium (Lovenox) (06/14/25 01:15) Notify Of Changes From Base (06/14/25 01:11) Manager Of Organizational Development For 24 Hours (06/14/25 01:11) Pantoprazole (Protonix) (06/14/25 10:00) Lisinopril Tablet (Zestril Tablet) (06/14/25 10:00) Metoprolol Tartrate Tablet (Lopressor Ta (06/14/25 10:00) Aspirin Tablet (06/14/25 10:00) Atorvastatin (Lipitor) (06/14/25 22:00) Hydralazine Injection (Apresoline Inject (06/14/25 01:15) Echo 2d Mode Cardiac Dop (06/14/25 01:11) Lactic Acid W/ Reflex Order (06/14/25 04:00) B-Type Natriuretic Peptide (06/14/25 01:11) Glucose Blood (Accu-Chek Comfort Curve T (06/14/25 07:00) Insulin R (Human) (Insulin R) (06/14/25 07:00) Dextrose 50% Syringe (06/14/25 01:15) Electrocardigram (06/14/25 01:11) Vital Signs Date Time Temp Pulse Resp B/P (MAP) Pulse Ox O2 Delivery O2 Flow Rate FiO2 06/14/25 01:49 97.5 74 16 155/78 (103) 97 97.5 06/13/25 22:52 212/102 06/13/25 22:42 77 06/13/25 22:33 97.1 90 20 202/107 98 97.1 Laboratory Tests Test 06/13/25 23:32 06/14/25 02:25 Lactic Acid Level 2.2 mmol/L (0.4-2.0) *H Pending White Blood Count 9.3 10^3/uL (4.4-10.8) Medications Medications Dose Ordered Sig/Cl Route Start Time Stop Time Status Last Admin Dose Admin Nitroglycerin 0.4 mg ONCE ONCE SL 06/13/25 22:45 06/13/25 22:46 DC 06/13/25 22:52 0.4 MG Assessment/Plan Assessment/Plan #Hypertensive urgency #Hyperlipedemia -BNP be 9.42 - labetalol 5 mg be given once - metoprolol tartrate 50 mg p.o. b.i.d. - lisinopril 20 mg daily - hydralazine 10 mg IV q.6 PRN if SBP>70 - continue home medication atorvastatin 80 mg daily - aspirin 81 mg daily- acetaminophen 650 mg p.o. q.6 p.r.n. - Zofran 4 mg IV q4 PRN - Protonix 40 mg IV daily - echo - ekg - tele monitor #Type 2 diabetes mellitus -A1c 6.9 -mild sliding scale insulin Gi prophylaxis: protonix 40mg IV daily DVT prophylaxis: lovenox 40mg sc daily diet: cardiac diet Goals of care discussed with the patient for more than 27 minutes: Full code status Case discussed with , patient, patients daughter Plan discussed with: Patient, Daughter My Orders Orders - GERALD NANCE RESIDENT Procedure Category Date Status Time Admit ADMIT 06/14/25 Transmitted 01:11 Code Status CODE 06/14/25 Transmitted 01:11 Ondansetron Hcl PHA 06/14/25 In Process (Zofran) 01:15 Complete Blood Count LAB 06/14/25 Logged 04:00 Comprehensive LAB 06/14/25 Logged Metabolic Panel 04:00 Cardiac DIET 06/14/25 Transmitted Diet-2gna,Lofat,Lochol Breakfast Condition: Unstable [place] 06/14/25 In Process 01:11 Acetaminophen Tablet PHA 06/14/25 In Process (Tylenol Tablet) 01:15 Enoxaparin Sodium PHA 06/14/25 In Process (Lovenox) 01:15 Notify Of Changes [place] 06/14/25 In Process From Base 01:11 Manager Of Organizational Development For [place] 06/14/25 In Process 24 Hours 01:11 Pantoprazole PHA 06/14/25 In Process (Protonix) 10:00 Lisinopril Tablet PHA 06/14/25 In Process (Zestril Tablet) 10:00 Metoprolol Tartrate PHA 06/14/25 In Process Tablet (Lopressor Ta 10:00 Aspirin Tablet PHA 06/14/25 In Process 10:00 Atorvastatin (Lipitor) PHA 06/14/25 In Process 22:00 Hydralazine Injection PHA 06/14/25 In Process (Apresoline Inject 01:15 Echo 2d Mode Cardiac US 06/14/25 Logged DOP 01:11 Lactic Acid W/ Reflex LAB 06/14/25 Logged Order 04:00 B-Type Natriuretic LAB 06/14/25 Logged Peptide 01:11 Glucose Blood PHA 06/14/25 In Process (Accu-Chek Comfort 07:00 Insulin R (Human) PHA 06/14/25 In Process (Insulin R) 07:00 Dextrose 50% Syringe PHA 11/1/25 In Process 01:15 Electrocardigram EKG 06/14/25 Logged 01:11 Date of Service: Jun 14, 2025 Billing Provider: CARLOS ESCALERA MD Common Visit Codes: [id number] INP/OBS CARE (HIGH) Secondary Visit Codes: [id number] CARE PLAN 30 MINUTES GERALD NANCE RESIDENT Jun 14, 2025 02:54
[2025-06-14] MEDS: PANTOPRAZOLE 40 MG TAB PO ONE (04:00)
[2025-06-14] MEDS: ATORVASTATIN 20 MG TAB PO ONE (04:01)
[2025-06-14 04:19] LABS: Hematocrit 43.1 % (36.0-46.0); Hemoglobin 14.6 g/dL (12.2-16.2); Mean Corpuscular Hemoglobin 30.3 pg (28.0-32.0); Mean Corpuscular Volume 89.4 fL (80.0-100.0); Nucleated Red Blood Cells % 0.0 %
[2025-06-14 04:35] LABS: Alanine Aminotransferase 20 U/L (7-40); Alkaline Phosphatase 100 U/L (46-116); Anion Gap 8 (5-15); BUN/Creatinine Ratio 17.1 (10.0-20.0); Blood Urea Nitrogen 18 mg/dL (9-23); Calcium 10.4 mg/dL (8.7-10.4); Carbon Dioxide 27 mmol/L (20-31); Chloride 105 mmol/L (98-107); Potassium 4.4 mmol/L (3.5-5.1); Sodium 140 mmol/L (136-145); Total Protein 8.1 g/dL (5.7-8.2)
[2025-06-14 04:36] LABS: Albumin 4.8 g/dL (3.2-4.8); Bilirubin, Total 0.8 mg/dL (0.2-1.0)
[2025-06-14 04:39] LABS: Glucose 106 mg/dL (74-106)
[2025-06-14] MEDS: PANTOPRAZOLE 40 MG/10 ML VIAL INJ IV ONE (04:53)
[2025-06-14] MEDS: ENOXAPARIN SOD 40 MG/0.4 ML SYRINGE SC SCH (04:53)
[2025-06-14] MEDS: LABETALOL HCL 20 MG/4 ML VL IV ONE (04:53)
[2025-06-14] MEDS: SUCRALFATE 1 GM TAB PO ONE (04:53)
[2025-06-14] MEDS: InsuLIN REG 1unit/0.01ml Soln (100units/ml) SC SCH (06:08)
[2025-06-14] MEDS: ACCU-CHEK COMFORT CURVE STRIP VI SCH (06:08)
[2025-06-14] MEDS: PANTOPRAZOLE 40 MG/10 ML VIAL INJ IV SCH (09:49)
[2025-06-14] MEDS: LISINOPRIL 20 MG TAB PO SCH (09:50)
[2025-06-14] MEDS: METOPROLOL TARTRATE 50 MG TAB PO SCH (09:51)
[2025-06-14] MEDS: SODIUM CHLORIDE 0.9% 1,000 ML IV SCH (09:57)
[2025-06-14] MEDS: hydrALAZINE HCL 20 MG/ML VL IV PRN (15:49)
--- NOTE | 2025-06-14 16:47 | DVHPNRES ---
Progress Note Date Seen: Jun 14, 2025 Resident Creating Document: ELIDIA ZAIDI RESIDENT Has the PT tested + for MRSA If YES, has PT been informed?: No Medical Necessity Reason Pt with a Central, PICC or Fol: No Subjective Review of Systems Rasheed Handley Ju[place] is a 69-year-old female with a past medical history of hypertension, hyperlipidemia, type 2 diabetes mellitus and CKD. The patient came to the ED with chief complain of 1 day of chest pain, 10/10, that started at rest, burning-like, retrosternal, radiates to her neck, with no aggravating or relieving factors, associated with nausea. On further questioning, patient states she is not compliant with her medications blood pressure medications. Her symptoms did not improved with rest, this prompted her visit to the ED. The patient denies headache, visual changes, palpitations, tinnitus, vomiting, fever, chills, urinary symptoms or shortness of breath. In the ED the BP was 202/107mmHg. temp 97.1, pulse 77, RR 20, SpO2 98% in RA. The patient was admitted the patient for further workup and management. Past medical history: As stated above Past surgical history: Denies any Social history: Patient denies smoking, alcohol, we will see drug abuse Family history: All siblings are hypertensive Allergies: None PCP: [place] remember the name, is in [facility] code status: Full code ROS: Constitutional: Yes: Other (Nausea); No: Fever, Chills, Sweats, Weakness, Malaise Eyes: No: Pain, Vision change, Conjunctivae inflammation, Eyelid inflammation, Other, Redness ENT: No: Ear pain, Ear discharge, Nose pain, Nose discharge, Nose congestion, Mouth pain, Mouth swelling, Throat pain, Throat swelling, Other Respiratory: No: Cough, Dry, Shortness of breath, SOB with excertion, Wheezing, Hemoptysis, Pleuritic Pain, Sputum, Wheezing, Other Cardiovascular: Chest Pain; No: Palpitations, Orthopnea, Paroxysmal Noc. Dyspnea, Edema, Lt Headedness, Other Gastrointestinal: No: Nausea, Vomiting, Abdominal Pain, Diarrhea, Constipation, Melena, Hematochezia, Other Genitourinary: No Dysuria, No Frequency, No Incontinence, No Hematuria, No Retention, No Other Musculoskeletal: No: other, neck pain, shoulder pain, arm pain, back pain, hand pain, leg pain, foot pain Skin: No: Rash, Lesions, Jaundice, Bruising, Other Neurological: No: Weakness, Numbness, Incoordination, Change in speech, Confusion, Seizures, Other Allergies: NO KNOWN ALLERGIES (Unverified , 11/15/19) Objective vital signs Vital Sign Date Time Temp Pulse Resp B/P (MAP) Pulse Ox O2 Delivery O2 Flow Rate FiO2 06/14/25 15:49 196/100 06/14/25 13:00 98.0 69 16 96 98.0 06/14/25 08:05 Room Air* 0 21 medications Current Medications Medications Dose Ordered Sig/Cl Route Start Time Stop Time Status Last Admin Dose Admin Ondansetron HCl 4 mg Q4HP PRN IV 06/14/25 01:15 Acetaminophen 650 mg Q6HP PRN PO 06/14/25 01:15 Enoxaparin Sodium 40 mg DAILY SC 06/14/25 01:15 06/14/25 09:51 40 MG Pantoprazole Sodium 40 mg DAILY IV 06/14/25 10:00 06/14/25 09:49 40 MG Lisinopril 20 mg DAILY PO 06/14/25 10:00 06/14/25 09:50 20 MG Metoprolol Tartrate 50 mg BID PO 06/14/25 10:00 06/14/25 09:51 50 MG Aspirin 81 mg DAILY PO 06/14/25 10:00 06/14/25 09:49 81 MG Atorvastatin Calcium 80 mg HS PO 06/14/25 22:00 Hydralazine HCl 10 mg Q6HP PRN IV 06/14/25 01:15 06/14/25 15:49 10 MG Diagnostic Test (Pha) 1 strip ACHS 06/14/25 07:00 06/14/25 11:29 1 STRIP Insulin Human Regular ACHS SC 06/14/25 07:00 06/14/25 12:09 3 UNITS Dextrose 50 ml UD PRN IV 06/14/25 01:15 Sodium Chloride 1,000 ml @ 60 mls/hr [id number] IV 06/14/25 09:45 06/14/25 09:57 60 MLS/HR Nifedipine 60 mg DAILY PO 06/15/25 10:00 Examination General Appearance: Alert, Oriented X3, Cooperative, Not in acute distress HEENT: Atraumatic, Mucous membranes moist/pink Respiratory: Clear to auscultation, Normal air movement, No added sounds Cardiovascular: Regular rate, Normal S1, Normal S2, No murmurs Abdominal: Mild epigastric tenderness on deep palpation. Active bowel sounds, Soft, no distention. Extremities: No edema, Normal pulses, No tenderness/swelling Skin: No Significant rash, except past surgical scars Neuro: Normal speech, no sensitive or motor deficits, cranial pairs normal. Psych/Mental Status: Mental status NL, Mood NL laboratory and microbiology Laboratory Tests 06/14/25 04:06 Test 06/14/25 04:06 Range/Units Serum Glucose 106 74-106 mg/dL Problem List/Assessment/Plan Problem List/Assessment/Plan #Hypertensive urgency -BNP be 9.42 - labetalol 5 mg be given once - metoprolol tartrate 50 mg p.o. b.i.d. - lisinopril 20 mg daily - hydralazine 10 mg IV q.6 PRN if SBP >70 - continue home medication atorvastatin 80 mg daily - aspirin 81 mg daily- acetaminophen 650 mg p.o. q.6 p.r.n. - Zofran 4 mg IV q4 PRN - Protonix 40 mg IV daily - Echo: pending report #Type 2 diabetes mellitus -A1c 6.9 -mild sliding scale insulin #Hyperlipedemia Atorvastatin 80mg po daily #GERD Pantoprazol 40m IV daily Sucralfate DVT prophylaxis Diet: Cardiac diet Goals of care discussed with the patient for more than 35 minutes: Code Status: Full code PCP: Dr. Larios Case discussed with Dr. José The patient agrees with the current plan. Plan discussed with: Patient My Orders My Orders Orders - ELIDIA ZAIDI RESIDENT Procedure Category Date Status Time Nifedipine Er PHA 06/15/25 In Process (Procardia Xl 10:00 Complete Blood Count LAB 06/15/25 Verified 04:00 Basic Metabolic Panel LAB 06/15/25 Verified 04:00 Date of Service: Jun 14, 2025 Billing Provider: BONNIE JOSÉ MD Common Visit Codes: [id number] INP/OBS CARE(HIGH) ELIDIA ZAIDI Jun 14, 2025 16:47 BONNIE JOSÉ MD Jun 14, 2025 23:59
[2025-06-14] MEDS: ATORVASTATIN 20 MG TAB PO SCH (21:15)
[2025-06-15 01:00] VITALS: BP 99/61; PULSE 67; RESP 17; TEMP 97; O2SAT 96
[2025-06-15 04:59] VITALS: BP 110/61; PULSE 73; RESP 18; TEMP 98; O2SAT 97
[2025-06-15 07:42] LABS: Hematocrit 43.5 % (36.0-46.0); Hemoglobin 14.4 g/dL (12.2-16.2); Mean Corpuscular Hemoglobin 29.9 pg (28.0-32.0); Mean Corpuscular Volume 90.4 fL (80.0-100.0); Nucleated Red Blood Cells % 0.0 %
[2025-06-15 07:58] LABS: Chloride 105 mmol/L (98-107); Potassium 4.8 mmol/L (3.5-5.1); Sodium 140 mmol/L (136-145)
[2025-06-15 07:59] LABS: Anion Gap 10 (5-15); Calcium 9.7 mg/dL (8.7-10.4); Carbon Dioxide 25 mmol/L (20-31)
[2025-06-15 08:00] VITALS: PULSE 70
[2025-06-15 08:04] LABS: BUN/Creatinine Ratio 15.8 (10.0-20.0); Blood Urea Nitrogen 22 mg/dL (9-23); Glucose 99 mg/dL (74-106)
[2025-06-15 09:00] VITALS: BP 133/96; PULSE 71; RESP 17; TEMP 98; O2SAT 96
[2025-06-15 13:00] VITALS: BP 112/59; PULSE 59; RESP 17; TEMP 97.8; O2SAT 94
--- NOTE | 2025-06-15 14:32 | DVHDSRES ---
Discharge Summary Date of Admission Resident Creating Document: DONNA DIAZ RESIDENT Jun 14, 2025 at 01:11 Date of Discharge: Jun 15, 2025 Admitting Diagnosis Hypertensive urgency Labs/Diagnostic Data: Laboratory Results Test 06/15/25 11:56 06/15/25 05:19 06/14/25 04:06 06/14/25 02:25 POC Glucose 93 mg/dl (70-106) White Blood Count 8.3 10^3/uL (4.4-10.8) Red Blood Count 4.81 10^6/uL (4.0-5.20) Hemoglobin 14.4 g/dL (12.2-16.2) Hematocrit 43.5 % (36.0-46.0) Mean Corpuscular Volume 90.4 fL (80.0-100.0) Mean Corpuscular Hemoglobin 29.9 pg (28.0-32.0) Mean Corpuscular Hemoglobin Concent 33.0 g/dL (32.0-36.0) Red Cell Distribution Width 14.0 % (11.8-14.3) Platelet Count 180 10^3/uL (140-450) Mean Platelet Volume 11.0 fL (6.9-10.8) Neutrophils (%) (Auto) 58.1 % (37.0-80.0) Lymphocytes (%) (Auto) 32.6 % (10.0-50.0) Monocytes (%) (Auto) 8.4 % (0.0-12.0) Eosinophils (%) (Auto) 0.6 % (0.0-7.0) Basophils (%) (Auto) 0.3 % (0.0-2.0) Neutrophils # (Auto) 4.8 10 ^3/uL (1.6-8.6) Lymphocytes # (Auto) 2.7 10 ^3/uL (0.4-5.4) Monocytes # (Auto) 0.7 10 ^3/uL (0-1.3) Eosinophils # (Auto) 0 10 ^3/uL (0-0.8) Basophils # (Auto) 0 10 ^3/uL (0-0.2) Nucleated Red Blood Cells 0.0 % Sodium Level 140 mmol/L (136-145) Potassium Level 4.8 mmol/L (3.5-5.1) Chloride Level 105 mmol/L (98-107) Carbon Dioxide Level 25 mmol/L (20-31) Anion Gap 10 (5-15) Blood Urea Nitrogen 22 mg/dL (9-23) Creatinine 1.39 mg/dL (0.550-1.02) Glomerular Filtration Rate Calc 41 mL/min (>90) BUN/Creatinine Ratio 15.8 (10.0-20.0) Serum Glucose 99 mg/dL (74-106) Calcium Level 9.7 mg/dL (8.7-10.4) Hemoglobin A1c 6.9 % A1C (<5.7) Lactic Acid Level 1.1 mmol/L (0.4-2.0) Total Bilirubin 0.8 mg/dL (0.2-1.0) Aspartate Amino Transferase (AST) 22 U/L (13-40) Alanine Aminotransferase (ALT) 20 U/L (7-40) Alkaline Phosphatase 100 U/L (46-116) B-Type Natriuretic Peptide 9.42 pg/mL (0-100) Total Protein 8.1 g/dL (5.7-8.2) Albumin 4.8 g/dL (3.2-4.8) Troponin I High Sensitivity 3 ng/L (</=34) Test 06/13/25 23:59 06/13/25 23:32 Urine Color Colorless (Yellow) Urine Clarity Clear (Clear) Urine pH 6.0 (5.0-9.0) Urine Specific [place] 1.010 (1.001-1.035) Urine Protein 1+ (Negative) Urine Ketones Negative (Negative) Urine Blood Negative /uL (Negative) Urine Nitrite Negative (Negative) Urine Bilirubin Negative (Negative) Urine Urobilinogen Normal mg/dL (Negative) Urine Leukocyte Esterase 1+ /uL (Negative) Urine RBC 1 /hpf (0 - 4) Urine Microscopic WBC 4 /HPF (0-5) Urine Squamous Epithelial Cells Few /hpf (<5) Urine Bacteria None seen /hpf (None Seen) Urine Glucose Normal mg/dL (Normal) Magnesium Level 1.9 mg/dL (1.6-2.6) Lipase 56 U/L (12-53) Other Laboratory Tests 06/15/25 05:19 Brief Hx & Hospital Course: Mrs. Octavia Iqbal is a 69-year-old female with a past medical history of hypertension, hyperlipidemia, type 2 diabetes mellitus and CKD. The patient came to the ED with chief complaint of 1 day of chest pain, 10/10 in intensity, that started at rest, burning-like, retrosternal, radiating to her neck, with no aggravating or relieving factors, associated with nausea. On further questioning, patient stated she is not compliant with her blood pressure medications. Her symptoms did not improve with rest, this prompted her visit to the ED. In the ED the BP was 202/107mmHg and continued to be high the next day. Nifedipine 60mg po daily was added to the regimen along with Hydralazine 10mg iv prn. Her blood pressure was brought under control and she was discharged home in a stable condition. Creatinine today was 1.39, she was recommended to hold lisinopril for 15 days and follow up with PCP in 15 days with repeat BMP. All medications and recommendations were thoroughly explained to the patient and she demonstrated understanding of the same. Past medical history: As stated above Past surgical history: Denies any Social history: Patient denies smoking, alcohol, we will see drug abuse Family history: All siblings are hypertensive Allergies: None code status: Full code General Appearance: Alert, Oriented X3, Cooperative, Not in acute distress HEENT: Atraumatic, Mucous membranes moist/pink Respiratory: Clear to auscultation, Normal air movement, No added sounds Cardiovascular: Regular rate, Normal S1, Normal S2, No murmurs Abdominal: no tenderness. Active bowel sounds, Soft, no distention. Extremities: No edema, Normal pulses, No tenderness/swelling Skin: No Significant rash, except past surgical scars Neuro: Normal speech, no sensitive or motor deficits, cranial nerves normal. Psych/Mental Status: Mental status NL, Mood NL Operations or Procedures PROCEDURE(s): CXRP - CHEST PORTABLE REASON: nausea, HTN ORDER NUMBER(s): [id number], ACCESSION NUMBER(s): [id number] CHEST RADIOGRAPH Indication: nausea, HTN Technique: Single frontal view of the chest was obtained COMPARISON: XY CHEST PORTABLE on DOS: 12/10/24, EKG on DOS: 06/16/22 FINDINGS: Lines and Tubes: None Lungs: Clear Pleura: No effusion. No pneumothorax. Cardiomediastinal contours: Unremarkable Bones: Unremarkable IMPRESSION: 1. No acute disease. Condition at Discharge: Fair Final Diagnosis/Problems List Hypertensive urgency Type 2 diabetes mellitus with hyperglycemia Hyperlipedemia GERD Discharge Disposition: Home Discharge Instruct/Medications Diet: Consistent carbohydrate, Cardiac 2g Na,low cholest Activity: No Restrictions, As Tolerated Follow Up/Referral: follow up with PCP in 1-2 weeks Medications: nifedipine 60 mg po daily metoprolol 50 mg po bid aspirin 81mg po daily atorvastatin Scheduled Aspirin (Aspirin Low Dose), 1 TAB PO DAILY Atorvastatin Calcium (Lipitor), 1 TAB PO DAILY Metformin Hydrochloride (Metformin Hcl), 1 TAB PO BID Metoprolol Tartrate (Metoprolol Tartrate), 50 MG PO BID Metoprolol Tartrate (Metoprolol Tartrate), 50 MG PO BID Nifedipine (Nifedipine Er), 1 TAB PO DAILY Ondansetron (Zofran), 4 MG PO BID Discontinued Medications Ciprofloxacin Hcl (Cipro), 500 MG PO BID Lisinopril (Lisinopril), 1 TAB PO DAILY Oxycodone W/ Acetaminophen (Percocet 5/325MG), 1 TAB PO BID Tamsulosin Hcl (Flomax), 1 CAP PO DAILY Discharge Statement: "Patient was advised to return to the ER or call 911 if any headaches, dizziness, shortness of breath, chest pain, abdominal pain, bleeding, fevers, or worsening of medical condition. Patient was counseled about treatment plan, medications, possible side effects, patientverbalized understanding. All questions were answered to the best of my ability. This discharge took greater then 30 minutes in planning, reviewing documentation, counseling the patient, and discussing with other team members." ASSESSMENT ASSESSMENT Assessment Hypertensive urgency Type 2 diabetes mellitus with hyperglycemia Hyperlipedemia GERD Date of Service: Jun 15, 2025 Billing Provider: BONNIE JOSÉ MD Common Visit Codes: 00028-BAA/OBS DISCH DAY >30min DONNA DIAZ RESIDENT Jun 15, 2025 14:32 BONNIE JOSÉ MD Jun 15, 2025 22:31
[2025-06-15] MEDS ORDERED: METO-158 PO (14:42)
[2025-06-15] MEDS ORDERED: ASPI81CH59 PO (14:42)
[2025-06-15] MEDS ORDERED: NIFE1TAB30 PO (14:42)
[2025-06-15 15:41] VITALS: BP 127/64; PULSE 68; TEMP 36.6
--- NOTE | 2025-06-16 11:56 | ECG ---
[facility] Test Date: 2025-06-13 Test Time: 22:42:18 Pat Name: LIZBETH LLOYD [facility] Gender: F [employer]: ROCCO : 1955 Requested By: GERALD NANCE Order Number: [id number] Reading MD: Garett Hou Measurements Intervals [place] Rate: 77 P: 59 IA: 160 QRS: 61 QRSD: 76 T: 63 QT: 348 QTc: 394 Interpretive Statements Sinus rhythm Probable left atrial enlargement RSR' in V1 or V2, right VCD or RVH Electronically Signed On 06-17-2025 13:30:58 PST by Garett Hou Please click the below link to view image of tracing.
== END 2025-06-15 16:01 | disposition home or self-care (01) | DRG 199 ==
LOC: ER 22:26 → OVERFLOW 06-14 01:11 → TELE-WESTW 06-14 04:21
PROVIDERS: ATTEND Emergency Medicine
DX: I16.0 Hypertensive urgency (principal); N17.0 Acute kidney failure with tubular necrosis; E11.22 Type 2 diabetes mellitus with diabetic chronic kidney disease; I12.9 Hypertensive chronic kidney disease with stage 1 through stage 4 chronic kidney disease, or unspecified chronic kidney disease; N18.9 Chronic kidney disease, unspecified; K21.9 Gastro-esophageal reflux disease without esophagitis; E78.5 Hyperlipidemia, unspecified; E11.65 Type 2 diabetes mellitus with hyperglycemia; Z91.148 Patient's other noncompliance with medication regimen for other reason
CPT/HCPCS: 36415; 71045; 80048; 80053; 81001; 82962; 83036; 83605; 83690; 83735; 83880; 84484; 85025; 93005; 96374; 96375; 99291; G0378; J1815; J2470